=== PATIENT | female | born 1950 | race Hispanic/Latino ===

== ENCOUNTER → 2019-05-31 | Outpatient (CLI) | payer OTHER ==
[~2019-05-31] VITALS: Ht 147.3 cm; Wt 63.5 kg
[~2019-05-31] MED LIST: REGADENOSON 0.4 MG/5 ML PF SYG IVP SCH
== END | disposition home or self-care (01) ==
LOC: SHCH 08:55
PROVIDERS: ATTEND Internal Medicine Cardiovascular Disease
DX: R06.00 Dyspnea, unspecified (principal)
CPT/HCPCS: 78452; 93017; 96374; A9500 ×2; J2785

== ENCOUNTER 2021-03-11 03:15 | Emergency (ER) | payer OTHER ==
[~2021-03-11] VITALS: Ht 149.9 cm; Wt 63.0 kg
[2021-03-11 03:17] VITALS: BP 162/67
[2021-03-11] MEDS ORDERED: PRED20TA3 PO (03:54)
[2021-03-11] MEDS ORDERED: PREDNISONE 20 MG TABLET PO ONE (04:00)
[2021-03-11] MEDS ORDERED: FAMOTIDINE 20MG VIAL IV ONE (04:00)
[2021-03-11 04:18] VITALS: BP 143/66
== END 2021-03-11 04:31 | disposition home or self-care (01) ==
LOC: EDH 03:15
DX: T78.40XA Allergy, unspecified, initial encounter (principal); L29.9 Pruritus, unspecified; I10 Essential (primary) hypertension; E11.9 Type 2 diabetes mellitus without complications; Z79.899 Other long term (current) drug therapy; X58.XXXA Exposure to other specified factors, initial encounter
CPT/HCPCS: 96374; 99283; J3490

== ENCOUNTER 2021-10-12 14:35 | Observation (INO) | payer OTHER ==
[~2021-10-12] VITALS: Ht 152.4 cm; Wt 65.1 kg
[~2021-10-12 14:35] MED LIST changes: +PRED20TA3 PO; -REGADENOSON 0.4 MG/5 ML PF SYG IVP SCH
[2021-10-12] MEDS ORDERED: ASPIRIN 81MG CHEW TAB PO ONE (15:00)
[2021-10-12 15:29] LABS: BASOPHILS % (AUTO) 0.7 % (0.0-5.0); EOSINOPHILS % (AUTO) 0.3 % (0.0-8.0); HEMATOCRIT 37.5 % (36-48); LYMPHOCYTES % (AUTO) 27.5 % (21.0-51.0); MEAN CORPUSCULAR HEMOGLOBIN 32.4 pg (27.0-33.0); MEAN CORPUSCULAR HGB CONC 32.8 g/dL (32.0-36.0); MEAN CORPUSCULAR VOLUME 98.7 fL (79-99); MONOCYTES % (AUTO) 6.3 % (3.0-13.0); NEUTROPHILS % (AUTO) 64.9 % (40.0-77.0); PLATELET COUNT (AUTO) 287 K/uL (130-400); RED CELL DISTRIBUTION WIDTH 13.2 % (11.0-15.5)
[2021-10-12 15:41] LABS: CREATININE 1.8 mg/dL (0.5-1.5)
[2021-10-12 15:46] LABS: ALBUMIN 3.8 g/dL (3.5-5.0); BILIRUBIN,TOTAL 0.4 mg/dL (0.2-1.0); TOTAL PROTEIN, SERUM 8.2 g/dL (6.0-8.3)
[2021-10-12] MEDS ORDERED: NITROGLYCERIN 1GM OINT 1 INCH/1GM TD ONE ×2 (18:09→18:30)
[2021-10-12] MEDS ORDERED: NITROGLYCERIN 0.4 MG SL TAB SL PRN (18:30)
[2021-10-12] MEDS: 0.9%NACL 1000ML 1,000 ML IV SCH (18:46)
[2021-10-12] MEDS ORDERED: ONDANSETRON 4MG INJ IVP PRN (20:30)
[2021-10-12] MEDS ORDERED: ALEN10TA27 PO (21:04)
[2021-10-12] MEDS ORDERED: OMEP40CA21 PO (21:04)
[2021-10-12] MEDS ORDERED: LOSA100T58 PO (21:04)
[2021-10-12] MEDS ORDERED: METO50TA18 PO (21:04)
[2021-10-12] MEDS ORDERED: DIPH25TA20 PO (21:04)
[2021-10-12] MEDS ORDERED: DONE5TAB33 PO (21:04)
[2021-10-12] MEDS ORDERED: LORA10TA7 PO (21:04)
[2021-10-12] MEDS ORDERED: CHLO25TA3 PO (21:04)
[2021-10-12] MEDS ORDERED: FERS325 PO (21:04)
[2021-10-12] MEDS ORDERED: AMLO-257 PO (21:04)
[2021-10-12] MEDS: ENOXAPARIN SODIUM 30 MG/0.3 ML SQ SCH (23:09)
[2021-10-13 02:29] LABS: APPEARANCE,URINE Clear (CLEAR); BILIRUBIN,URINE Negative (NEGATIVE); COLOR,URINE Yellow (YELLOW); GLUCOSE, URINE (UA) Negative (NEGATIVE); KETONES,URINE Negative (NEGATIVE); LEUKOCYTE ESTERASE ,URINE Trace (NEGATIVE); NITRATE,URINE Negative (NEGATIVE); OCCULT BLOOD,URINE Negative (NEGATIVE); PH,URINE 5.5 (5.0-8.0); PROTEIN,URINE POS 2+ mg/dL (NEGATIVE); UROBILINOGEN,URINE 0.2 mg/dL (0.2-1.0)
[2021-10-13 02:33] LABS: CHLORIDE,URINE RANDOM 69 mmol/L (110-250); POTASSIUM,URINE RANDOM 10 mmol/L (25-125); SODIUM,URINE RANDOM 67 mmol/l (40-220)
[2021-10-13 02:48] LABS: BACTERIA,URINE None Seen /HPF (None Seen); RBC,URINE None Seen /HPF (0-1)
[2021-10-13] MEDS ORDERED: ACETAMINOPHEN 325 MG TAB PO PRN (05:30)
[2021-10-13] MEDS: 0.9%NACL 1000ML 1,000 ML IV SCH (07:50)
[2021-10-13 08:44] VITALS: BP 139/60
[2021-10-13] MEDS ORDERED: ENOXAPARIN SODIUM 30 MG/0.3 ML SQ SCH (09:00)
[2021-10-13] MEDS: ENOXAPARIN SODIUM 30 MG/0.3 ML SQ SCH (09:32)
[2021-10-13] MEDS ORDERED: [UNRECOGNIZED DRUG - OTHER] PO (09:40)
[2021-10-13] MEDS ORDERED: INSU100I35 SQ (09:40)
[2021-10-13] MEDS ORDERED: ACET650S28 PO (09:40)
[2021-10-13 12:00] VITALS: BP 159/68
[2021-10-13 16:00] VITALS: BP 146/77
[2021-10-13 16:44] LABS: HEMATOCRIT 31.4 % (36-48); MEAN CORPUSCULAR HEMOGLOBIN 32.1 pg (27.0-33.0); MEAN CORPUSCULAR HGB CONC 33.4 g/dL (32.0-36.0); RED BLOOD CELL COUNT(AUTO) 3.27 MIL/uL (4.00-5.50); WHITE BLOOD COUNT (AUTO) 4.8 K/uL (4.8-10.8)
[2021-10-13 16:58] LABS: CREATININE 1.5 mg/dL (0.5-1.5); POTASSIUM 3.7 mmol/L (3.5-5.1)
[2021-10-13 17:13] LABS: % IRON SATURATION 25.9 % (22-44)
[2021-10-13] MEDS: METOPROLOL TARTRATE 25 MG TAB PO SCH (20:05)
[2021-10-13] MEDS: AMLODIPINE 5 MG TAB PO SCH (20:05)
[2021-10-13] MEDS: INSULIN HUMULIN R 100 UNIT/ML 3ML SQ SCH (20:57)
[2021-10-13] MEDS ORDERED: HYDRALAZINE HCL 10 MG TABLET PO SCH (21:00)
[2021-10-13] MEDS ORDERED: METOPROLOL TARTRATE 50 MG TAB PO SCH (21:00)
[2021-10-13 21:11] VITALS: BP 152/72
[2021-10-14 00:26] VITALS: BP 137/87
[2021-10-14 03:31] VITALS: BP 128/47
[2021-10-14] MEDS: INSULIN HUMULIN R 100 UNIT/ML 3ML SQ SCH ×2 (06:02→12:20)
[2021-10-14] MEDS: 0.9%NACL 1000ML 1,000 ML IV SCH ×2 (06:24→10:30)
[2021-10-14 08:00] VITALS: BP 148/71
[2021-10-14] MEDS ORDERED: METO25TA6 PO (08:30)
[2021-10-14] MEDS ORDERED: LOSA50TA64 PO (08:30)
[2021-10-14] MEDS ORDERED: DULO60CA64 PO (08:30)
[2021-10-14] MEDS ORDERED: HYDR10 PO (08:30)
[2021-10-14] MEDS: AMLODIPINE 5 MG TAB PO SCH (08:41)
[2021-10-14] MEDS: METOPROLOL TARTRATE 25 MG TAB PO SCH (08:41)
[2021-10-14] MEDS: ENOXAPARIN SODIUM 30 MG/0.3 ML SQ SCH (08:41)
[2021-10-14] MEDS ORDERED: DULOXETINE HCL 30 MG CAP PO SCH ×2 (09:00→21:00)
[2021-10-14] MEDS ORDERED: LOSARTAN 50 MG TABLET PO SCH (09:00)
[2021-10-14] MEDS ORDERED: FAMOTIDINE 20MG TAB PO SCH (09:00)
[2021-10-14] MEDS ORDERED: DONEPEZIL HCL 5 MG TAB PO SCH (09:00)
[2021-10-14] MEDS ORDERED: LOSARTAN 100 MG TABLET PO SCH (09:00)
[2021-10-14] MEDS ORDERED: CHLORTHALIDONE 25 MG PO SCH (09:00)
[2021-10-14 12:00] VITALS: BP 144/68
[2021-10-14] MEDS ORDERED: HYDRALAZINE HCL 10 MG TABLET PO SCH (14:00)
[2021-10-14 16:00] VITALS: BP 148/73
== END 2021-10-14 17:30 | disposition home or self-care (01) ==
LOC: EDH 14:45 → INTOOBSV 18:08 → EDHIP 18:08 → 4BH 10-13 08:15
PROVIDERS: ADMIT Internal Medicine; ATTEND Internal Medicine
DX: R07.89 Other chest pain (principal); Z20.822 Contact with and (suspected) exposure to COVID-19; N17.9 Acute kidney failure, unspecified; R00.1 Bradycardia, unspecified; E11.9 Type 2 diabetes mellitus without complications; M79.7 Fibromyalgia; Z79.4 Long term (current) use of insulin; Z79.899 Other long term (current) drug therapy; Z98.890 Other specified postprocedural states
CPT/HCPCS: 36415 ×2; 71045; 76770; 78582; 80048; 80051; 80053; 81001; 82948 ×5; 83540; 83550; 84484 ×4; 85025; 85027; 85378 ×2; 87635; 93005; 93970; 96360; 96361 ×3; 96372 ×3; 99291; A9540; A9558; G0378 ×25; J1650 ×3; J1815 ×2; J7030

== ENCOUNTER → 2022-01-05 | Outpatient (CLI) | payer OTHER ==
[~2022-01-05] MED LIST changes: +ACET650S28 PO; +ALEN10TA27 PO; +AMLO-257 PO; +DIPH25TA20 PO; +DONE5TAB33 PO; +DULO60CA64 PO; +FERS325 PO; +HYDR10 PO; +INSU100I35 SQ; +LORA10TA7 PO; +LOSA50TA64 PO; +METO25TA6 PO; +OMEP40CA21 PO; -PRED20TA3 PO; +[UNRECOGNIZED DRUG - OTHER] PO
== END | disposition home or self-care (01) ==
LOC: SHCH 08:31
PROVIDERS: ATTEND Internal Medicine Cardiovascular Disease
DX: I35.1 Nonrheumatic aortic (valve) insufficiency (principal); I27.20 Pulmonary hypertension, unspecified; I11.9 Hypertensive heart disease without heart failure; E11.9 Type 2 diabetes mellitus without complications; R94.31 Abnormal electrocardiogram [ECG] [EKG]
CPT/HCPCS: 93306

== ENCOUNTER 2022-11-10 16:52 | Emergency (ER) | payer OTHER ==
[~2022-11-10] VITALS: Ht 149.9 cm; Wt 59.4 kg
[2022-11-10] MEDS ORDERED: LACTATED RINGERS 1000ML 1,000 ML IV ONE (17:30)
[2022-11-10 17:32] LABS: BASOPHILS % (AUTO) 0.6 % (0.0-5.0); EOSINOPHILS % (AUTO) 0.8 % (0.0-8.0); HEMATOCRIT 36.8 % (36-48); LYMPHOCYTES % (AUTO) 22.5 % (21.0-51.0); MEAN CORPUSCULAR HEMOGLOBIN 33.2 pg (27.0-33.0); MEAN CORPUSCULAR HGB CONC 35.9 g/dL (32.0-36.0); MEAN CORPUSCULAR VOLUME 92.5 fL (79-99); MONOCYTES % (AUTO) 5.4 % (3.0-13.0); NEUTROPHILS % (AUTO) 70.4 % (40.0-77.0); PLATELET COUNT (AUTO) 399 K/uL (130-400); RED BLOOD CELL COUNT(AUTO) 3.98 MIL/uL (4.00-5.50); RED CELL DISTRIBUTION WIDTH 13.2 % (11.0-15.5); WHITE BLOOD COUNT (AUTO) 8.7 K/uL (4.8-10.8)
[2022-11-10 17:36] LABS: APPEARANCE,URINE CLOUDY (CLEAR); BILIRUBIN,URINE NEGATIVE (NEGATIVE); COLOR,URINE YELLOW (YELLOW); GLUCOSE, URINE (UA) 300 mg/dL (NEGATIVE); KETONES,URINE NEGATIVE (NEGATIVE); LEUKOCYTE ESTERASE ,URINE NEGATIVE Leu/uL (NEGATIVE); NITRATE,URINE NEGATIVE (NEGATIVE); OCCULT BLOOD,URINE SMALL (NEGATIVE); PROTEIN,URINE 600 mg/dL (NEGATIVE); UROBILINOGEN,URINE 0.2 mg/dL (0.2-1.0)
[2022-11-10 17:43] LABS: BACTERIA,URINE RARE /HPF (None Seen); MUCUS,URINE RARE LPF (None Seen); OTHER CASTS, URINE 2 /LPF (None Seen); SQUAMOUS EPITHELIAL CELL,UR RARE /HPF (0-2); YEAST,URINE BUDDING FEW /HPF (None Seen)
[2022-11-10 17:49] LABS: POTASSIUM 3.2 mmol/L (3.5-5.1)
[2022-11-10 17:53] LABS: ALBUMIN 4.1 g/dL (3.5-5.0); TOTAL PROTEIN, SERUM 8.6 g/dL (6.0-8.3)
[2022-11-10] MEDS ORDERED: POTASSIUM CHLORIDE 10% ELIXIR 20 MEQ/15 ML UDCUP PO ONE (18:30)
[2022-11-10 19:57] VITALS: BP 119/65
== END 2022-11-10 19:57 | disposition home or self-care (01) ==
LOC: EDH 16:52
DX: E87.6 Hypokalemia (principal); N28.9 Disorder of kidney and ureter, unspecified; R10.12 Left upper quadrant pain; I10 Essential (primary) hypertension; E11.9 Type 2 diabetes mellitus without complications; Z90.49 Acquired absence of other specified parts of digestive tract; Z90.710 Acquired absence of both cervix and uterus; Z79.4 Long term (current) use of insulin; Z79.899 Other long term (current) drug therapy; Z88.0 Allergy status to penicillin; Z88.1 Allergy status to other antibiotic agents; Z88.5 Allergy status to narcotic agent; Z88.8 Allergy status to other drugs, medicaments and biological substances
CPT/HCPCS: 99284; 74176; 96360; 80053; 83690; 85025; 87088; 81001; 36415; J7120

== ENCOUNTER 2023-02-07 10:02 | Emergency (ER) | payer OTHER ==
[~2023-02-07] VITALS: Ht 149.9 cm; Wt 59.0 kg
[2023-02-07] MEDS ORDERED: 0.9%NACL 1000ML 1,000 ML IV ONE (10:30)
[2023-02-07] MEDS ORDERED: DICYCLOMINE HCL 10 MG/5 ML ML PO ONE (10:30)
[2023-02-07] MEDS ORDERED: MAG/ALUM/SIMETH 30 ML UDCUP PO ONE (10:30)
[2023-02-07] MEDS ORDERED: LIDOCAINE HCL 2% VISCOUS 15 ML UDCUP PO ONE (10:30)
[2023-02-07] MEDS ORDERED: ONDANSETRON 4MG INJ IVP ONE (10:30)
[2023-02-07 10:50] LABS: BASOPHILS % (AUTO) 0.5 % (0.0-5.0); EOSINOPHILS % (AUTO) 1.7 % (0.0-8.0); HEMATOCRIT 35.3 % (36-48); LYMPHOCYTES % (AUTO) 23.4 % (21.0-51.0); MEAN CORPUSCULAR HEMOGLOBIN 32.4 pg (27.0-33.0); MEAN CORPUSCULAR HGB CONC 33.7 g/dL (32.0-36.0); MEAN CORPUSCULAR VOLUME 96.2 fL (79-99); NEUTROPHILS % (AUTO) 68.2 % (40.0-77.0); PLATELET COUNT (AUTO) 266 K/uL (130-400); RED BLOOD CELL COUNT(AUTO) 3.67 MIL/uL (4.00-5.50); RED CELL DISTRIBUTION WIDTH 12.7 % (11.0-15.5); WHITE BLOOD COUNT (AUTO) 8.2 K/uL (4.8-10.8)
[2023-02-07 11:00] LABS: APPEARANCE,URINE CLEAR (CLEAR); BILIRUBIN,URINE NEGATIVE (NEGATIVE); COLOR,URINE LIGHT-YELLOW (YELLOW); GLUCOSE, URINE (UA) NEGATIVE (NEGATIVE); KETONES,URINE NEGATIVE (NEGATIVE); LEUKOCYTE ESTERASE ,URINE NEGATIVE Leu/uL (NEGATIVE); NITRATE,URINE NEGATIVE (NEGATIVE); OCCULT BLOOD,URINE NEGATIVE (NEGATIVE); PH,URINE 5.5 (5.0-8.0); PROTEIN,URINE 100 mg/dL (NEGATIVE); UROBILINOGEN,URINE 0.2 mg/dL (0.2-1.0)
[2023-02-07 11:01] LABS: CREATININE 1.7 mg/dL (0.5-1.5); POTASSIUM 3.7 mmol/L (3.5-5.1)
[2023-02-07 11:05] LABS: ALBUMIN 4.1 g/dL (3.5-5.0); TOTAL PROTEIN, SERUM 8.3 g/dL (6.0-8.3)
[2023-02-07 12:05] LABS: BACTERIA,URINE RARE /HPF (None Seen)
[2023-02-07 13:04] VITALS: BP 144/60
[2023-02-07] MEDS ORDERED: CIPR750T17 PO (13:23)
[2023-02-07] MEDS ORDERED: ONDA4TAB10 PO (13:23)
[2023-02-07] MEDS ORDERED: ESOM40CA PO (13:23)
[2023-02-07] MEDS ORDERED: LOPE2TAB26 PO (13:23)
== END 2023-02-07 14:09 | disposition home or self-care (01) ==
LOC: EDH 10:02
DX: K52.9 Noninfective gastroenteritis and colitis, unspecified (principal); R74.8 Abnormal levels of other serum enzymes; E11.9 Type 2 diabetes mellitus without complications; I10 Essential (primary) hypertension; M79.7 Fibromyalgia; Z79.4 Long term (current) use of insulin; Z79.899 Other long term (current) drug therapy; Z88.0 Allergy status to penicillin; Z88.1 Allergy status to other antibiotic agents; Z88.5 Allergy status to narcotic agent; Z90.49 Acquired absence of other specified parts of digestive tract
CPT/HCPCS: 99285; 74176; 96374; 96361; 84484; 80053; 83690; 85025; 81001; 36415; 93005; J7030; J2405

== ENCOUNTER 2023-03-06 20:31 | Observation (INO) | payer OTHER ==
[~2023-03-06 20:31] MED LIST changes: +CIPR750T17 PO; +ESOM40CA PO; +LOPE2TAB26 PO; +ONDA4TAB10 PO
[2023-03-06 21:10] LABS: BASOPHILS % (AUTO) 0.9 % (0.0-5.0); EOSINOPHILS % (AUTO) 2.4 % (0.0-8.0); HEMATOCRIT 30.6 % (36-48); MEAN CORPUSCULAR HEMOGLOBIN 32.6 pg (27.0-33.0); MEAN CORPUSCULAR HGB CONC 33.3 g/dL (32.0-36.0); MEAN CORPUSCULAR VOLUME 97.8 fL (79-99); MONOCYTES % (AUTO) 8.5 % (3.0-13.0); NEUTROPHILS % (AUTO) 56.8 % (40.0-77.0); PLATELET COUNT (AUTO) 215 K/uL (130-400); RED BLOOD CELL COUNT(AUTO) 3.13 MIL/uL (4.00-5.50); RED CELL DISTRIBUTION WIDTH 13.3 % (11.0-15.5); WHITE BLOOD COUNT (AUTO) 4.6 K/uL (4.8-10.8)
[2023-03-06 21:33] LABS: ALBUMIN 3.6 g/dL (3.5-5.0); TOTAL PROTEIN, SERUM 7.2 g/dL (6.0-8.3)
[2023-03-06] MEDS ORDERED: ACETAMINOPHEN 500 MG TABLET PO ONE (22:00)
[2023-03-06] MEDS ORDERED: FAMOTIDINE 20MG VIAL IV ONE (22:00)
[2023-03-06] MEDS ORDERED: METOCLOPRAMIDE 10 MG/2 ML VIAL IVP ONE (22:00)
[2023-03-07 00:16] LABS: CHOLESTEROL 245 mg/dL (<200); HDL CHOLESTEROL 53 mg/dL (35-85); LDL DIRECT 137 mg/dL (0-99); TRIGLYCERIDES 218 mg/dL (30-200)
[2023-03-07] MEDS ORDERED: 0.9%NACL 1000ML 1,000 ML IV SCH (00:30)
[2023-03-07 00:48] LABS: APPEARANCE,URINE CLEAR (CLEAR); BILIRUBIN,URINE NEGATIVE (NEGATIVE); COLOR,URINE LIGHT-YELLOW (YELLOW); GLUCOSE, URINE (UA) >=1000 mg/dL (NEGATIVE); KETONES,URINE NEGATIVE (NEGATIVE); LEUKOCYTE ESTERASE ,URINE NEGATIVE Leu/uL (NEGATIVE); NITRATE,URINE NEGATIVE (NEGATIVE); OCCULT BLOOD,URINE NEGATIVE (NEGATIVE); PH,URINE 5.5 (5.0-8.0); PROTEIN,URINE 100 mg/dL (NEGATIVE); UROBILINOGEN,URINE 0.2 mg/dL (0.2-1.0)
[2023-03-07 00:52] LABS: BACTERIA,URINE RARE /HPF (None Seen); RBC,URINE 0-1 /HPF (0-1); SQUAMOUS EPITHELIAL CELL,UR RARE /HPF (0-2)
[2023-03-07] MEDS ORDERED: HYDROCODONE/ACETAMINOPHEN 5/325 MG TAB PO PRN (02:30)
[2023-03-07] MEDS ORDERED: ONDANSETRON 4MG INJ IV PRN (02:30)
[2023-03-07] MEDS ORDERED: HYDROMORPHONE 1 MG INJ IV PRN (02:30)
[2023-03-07] MEDS ORDERED: ACETAMINOPHEN 325 MG TAB PO PRN (02:30)
[2023-03-07] MEDS: 0.9%NACL 1000ML 1,000 ML IV SCH ×2 (03:14→14:28)
[2023-03-07] MEDS: HEPARIN 5,000 UNIT VIAL SQ SCH ×2 (03:41→15:07)
[2023-03-07 07:29] LABS: BASOPHILS % (AUTO) 0.7 % (0.0-5.0); EOSINOPHILS % (AUTO) 2.6 % (0.0-8.0); HEMATOCRIT 29.4 % (36-48); LYMPHOCYTES % (AUTO) 42.6 % (21.0-51.0); MEAN CORPUSCULAR HEMOGLOBIN 32.4 pg (27.0-33.0); MEAN CORPUSCULAR HGB CONC 33.7 g/dL (32.0-36.0); MEAN CORPUSCULAR VOLUME 96.1 fL (79-99); MONOCYTES % (AUTO) 9.1 % (3.0-13.0); NEUTROPHILS % (AUTO) 44.8 % (40.0-77.0); PLATELET COUNT (AUTO) 222 K/uL (130-400); RED BLOOD CELL COUNT(AUTO) 3.06 MIL/uL (4.00-5.50); RED CELL DISTRIBUTION WIDTH 13.4 % (11.0-15.5); WHITE BLOOD COUNT (AUTO) 4.3 K/uL (4.8-10.8)
[2023-03-07 07:41] LABS: HEMOGLOBIN A1C 8.4 % (4.0-6.0)
[2023-03-07 07:42] LABS: MAGNESIUM 1.9 mg/dL (1.80-2.40); PHOSPHORUS 4.6 mg/dL (2.5-4.9); POTASSIUM 3.9 mmol/L (3.5-5.1)
[2023-03-07] MEDS: PANTOPRAZOLE 40 MG TAB DR PO SCH (08:12)
[2023-03-07 10:26] LABS: CRP QUANTITATIVE < 2.00 mg/L (0.00-9.0); LIPASE 521 U/L (114-286)
[2023-03-07 11:03] LABS: INR 0.93 (0.85-1.15); PROTHROMBIN TIME 10.7 SEC (9.6-11.6)
[2023-03-07] MEDS: INSULIN HUMULIN R 100 UNIT/ML 3ML SQ SCH ×3 (11:30→21:00)
[2023-03-07 16:25] VITALS: BP 141/65; PULSE 49; RESP 16
[2023-03-07] MEDS: ACETAMINOPHEN 325 MG TAB PO PRN (16:42)
[2023-03-07 19:55] VITALS: BP 161/65; PULSE 62; RESP 18
[2023-03-07 20:00] VITALS: O2SAT 100
[2023-03-07] MEDS ORDERED: HYDRALAZINE 20MG/ML VIAL IV PRN (20:00)
[2023-03-07] MEDS ORDERED: LOSARTAN 50 MG TABLET PO SCH (21:00)
[2023-03-07 23:57] VITALS: BP 145/70; PULSE 64; RESP 18
[2023-03-08] VITALS (8 sets, daily range): BP systolic 108–153; BP diastolic 63–77; PULSE 56–68; RESP 16–18; O2SAT 99–100
[2023-03-08] MEDS: HEPARIN 5,000 UNIT VIAL SQ SCH ×2 (03:40→16:13)
[2023-03-08 05:39] LABS: BASOPHILS % (AUTO) 0.7 % (0.0-5.0); EOSINOPHILS % (AUTO) 3.7 % (0.0-8.0); HEMATOCRIT 29.2 % (36-48); LYMPHOCYTES % (AUTO) 41.6 % (21.0-51.0); MEAN CORPUSCULAR HEMOGLOBIN 32.6 pg (27.0-33.0); MEAN CORPUSCULAR HGB CONC 33.2 g/dL (32.0-36.0); MONOCYTES % (AUTO) 8.2 % (3.0-13.0); NEUTROPHILS % (AUTO) 45.6 % (40.0-77.0); PLATELET COUNT (AUTO) 217 K/uL (130-400); RED BLOOD CELL COUNT(AUTO) 2.98 MIL/uL (4.00-5.50); RED CELL DISTRIBUTION WIDTH 13.4 % (11.0-15.5)
[2023-03-08 05:57] LABS: ALANINE AMINOTRANSFERASE 21 U/L (12-78); ALBUMIN 3.4 g/dL (3.5-5.0); ASPARTATE AMINOTRANSFERASE 24 U/L (10-37); BILIRUBIN,DIRECT 0.1 mg/dL (0.0-0.3); CARBON DIOXIDE 23 mmol/L (21-32); CHLORIDE 108 mmol/L (101-111); CREATININE 1.9 mg/dL (0.5-1.5); GLOMERULAR FILTR. RATE CALC 28 mL/min (>90); GLUCOSE,RANDOM 101 mg/dL (70-105); LIPASE 198 U/L (114-286); POTASSIUM 3.7 mmol/L (3.5-5.1); SODIUM SERUM 139 mmol/L (136-145); TOTAL PROTEIN, SERUM 6.7 g/dL (6.0-8.3); UREA NITROGEN, BLOOD 27 mg/dL (7-18)
[2023-03-08 05:58] LABS: CRP QUANTITATIVE < 2.00 mg/L (0.00-9.0)
[2023-03-08] MEDS: INSULIN HUMULIN R 100 UNIT/ML 3ML SQ SCH ×4 (06:36→21:00)
[2023-03-08] MEDS: PANTOPRAZOLE 40 MG TAB DR PO SCH (09:02)
[2023-03-08] MEDS: 0.9%NACL 1000ML 1,000 ML IV SCH ×2 (10:28→22:51)
[2023-03-08] MEDS ORDERED: AMLODIPINE 5 MG TAB PO SCH (21:00)
[2023-03-08] MEDS: METOCLOPRAMIDE 5 MG TABLET PO SCH (21:25)
[2023-03-08] MEDS: ACETAMINOPHEN 325 MG TAB PO PRN (23:17)
[2023-03-09] MEDS: HEPARIN 5,000 UNIT VIAL SQ SCH ×2 (03:36→16:46)
[2023-03-09 03:42] VITALS: BP 144/60; PULSE 75; RESP 16
[2023-03-09 04:43] LABS: BASOPHILS % (AUTO) 0.7 % (0.0-5.0); EOSINOPHILS % (AUTO) 2.5 % (0.0-8.0); HEMATOCRIT 26.7 % (36-48); LYMPHOCYTES % (AUTO) 50.3 % (21.0-51.0); MEAN CORPUSCULAR HEMOGLOBIN 32.6 pg (27.0-33.0); MEAN CORPUSCULAR HGB CONC 33.7 g/dL (32.0-36.0); MEAN CORPUSCULAR VOLUME 96.7 fL (79-99); MONOCYTES % (AUTO) 8.2 % (3.0-13.0); NEUTROPHILS % (AUTO) 38.1 % (40.0-77.0); PLATELET COUNT (AUTO) 205 K/uL (130-400); RED BLOOD CELL COUNT(AUTO) 2.76 MIL/uL (4.00-5.50); RED CELL DISTRIBUTION WIDTH 13.3 % (11.0-15.5); WHITE BLOOD COUNT (AUTO) 4.4 K/uL (4.8-10.8)
[2023-03-09 04:54] LABS: CREATININE 1.9 mg/dL (0.5-1.5); POTASSIUM 3.4 mmol/L (3.5-5.1)
[2023-03-09] MEDS: METOCLOPRAMIDE 5 MG TABLET PO SCH ×3 (06:25→16:39)
[2023-03-09] MEDS: INSULIN HUMULIN R 100 UNIT/ML 3ML SQ SCH ×3 (06:43→16:54)
[2023-03-09 08:00] VITALS: BP 132/60; PULSE 57; RESP 17; O2SAT 100
[2023-03-09] MEDS: PANTOPRAZOLE 40 MG TAB DR PO SCH (10:01)
[2023-03-09 11:37] VITALS: BP 149/72; PULSE 64; RESP 19
[2023-03-09] MEDS ORDERED: METO5TAB2 PO (11:43)
[2023-03-09] MEDS ORDERED: AMLO5TAB4 PO (11:43)
[2023-03-09 16:00] VITALS: BP 149/67; PULSE 60; RESP 19
== END 2023-03-09 18:40 | disposition home or self-care (01) ==
LOC: EDH 20:31 → EDHIP 03-07 02:11 → INTOOBSV 03-07 02:11 → 3DH 03-07 16:25
PROVIDERS: ADMIT Internal Medicine; ATTEND Internal Medicine
DX: K85.90 Acute pancreatitis without necrosis or infection, unspecified (principal); Z20.822 Contact with and (suspected) exposure to COVID-19; E11.65 Type 2 diabetes mellitus with hyperglycemia; I12.0 Hypertensive chronic kidney disease with stage 5 chronic kidney disease or end stage renal disease; E11.22 Type 2 diabetes mellitus with diabetic chronic kidney disease; N18.32 Chronic kidney disease, stage 3b; E78.2 Mixed hyperlipidemia; M79.7 Fibromyalgia; K76.89 Other specified diseases of liver; Z88.0 Allergy status to penicillin; Z79.899 Other long term (current) drug therapy; Z90.710 Acquired absence of both cervix and uterus; Z51.5 Encounter for palliative care; Z79.4 Long term (current) use of insulin
CPT/HCPCS: 96374; 96375; 99285; 84484 ×2; 80061; 80053; 83690 ×3; 85025 ×4; 74018; 71045; 93005; 96372 ×3; 96361; 83036; 83735; 84100; 80048 ×3; 85610; 85730; 87804 ×2; 82948 ×10; 86140 ×2; 81001; 36415 ×4; 87635; 74176; 74181; 80076; J3490; J2765; G0378 ×30; J1644 ×6; S8037

== ENCOUNTER 2023-06-05 12:28 | Emergency (ER) | payer OTHER ==
[~2023-06-05] VITALS: Ht 149.9 cm; Wt 62.6 kg
[~2023-06-05 12:28] MED LIST changes: -ACET650S28 PO; -ALEN10TA27 PO; -AMLO-257 PO; +AMLO5TAB4 PO; -CIPR750T17 PO; -DIPH25TA20 PO; -DULO60CA64 PO; -HYDR10 PO; -LOPE2TAB26 PO; -LOSA50TA64 PO; +METO5TAB2 PO; -OMEP40CA21 PO; -[UNRECOGNIZED DRUG - OTHER] PO
[2023-06-05 13:15] LABS: BASOPHILS # (AUTO) 0.03 K/uL (0.00-0.20); BASOPHILS % (AUTO) 0.4 % (0.0-5.0); EOSINOPHILS # (AUTO) 0.21 K/uL (0.00-0.70); EOSINOPHILS % (AUTO) 2.6 % (0.0-8.0); HEMATOCRIT 33.9 % (36-48); IMMATURE GRANULOCYTE ABSOLUTE 0.02 K/uL (0-1); MEAN CORPUSCULAR HGB CONC 34.5 g/dL (32.0-36.0); MEAN CORPUSCULAR VOLUME 98.5 fL (79-99); MONOCYTES # (AUTO) 0.6 K/uL (0.1-1.0); MONOCYTES % (AUTO) 7.6 % (3.0-13.0); NEUTROPHILS # (AUTO) 5.3 K/uL (1.8-7.7); NEUTROPHILS % (AUTO) 65.2 % (40.0-77.0); PLATELET COUNT (AUTO) 297 K/uL (130-400); RED BLOOD CELL COUNT(AUTO) 3.44 MIL/uL (4.00-5.50); RED CELL DISTRIBUTION WIDTH 13.3 % (11.0-15.5); WHITE BLOOD COUNT (AUTO) 8.2 K/uL (4.8-10.8)
[2023-06-05 13:23] LABS: CREATININE 1.9 mg/dL (0.5-1.5); POTASSIUM 3.5 mmol/L (3.5-5.1)
[2023-06-05 13:27] LABS: ALBUMIN 4.1 g/dL (3.5-5.0); BILIRUBIN,TOTAL 0.4 mg/dL (0.2-1.0); TOTAL PROTEIN, SERUM 8.2 g/dL (6.0-8.3)
[2023-06-05 14:20] LABS: APPEARANCE,URINE CLEAR (CLEAR); BILIRUBIN,URINE NEGATIVE (NEGATIVE); COLOR,URINE LIGHT-YELLOW (YELLOW); GLUCOSE, URINE (UA) NEGATIVE (NEGATIVE); KETONES,URINE NEGATIVE (NEGATIVE); LEUKOCYTE ESTERASE ,URINE 75 Leu/uL (NEGATIVE); NITRATE,URINE NEGATIVE (NEGATIVE); OCCULT BLOOD,URINE NEGATIVE (NEGATIVE); PH,URINE 5.5 (5.0-8.0); PROTEIN,URINE 300 mg/dL (NEGATIVE); UROBILINOGEN,URINE 0.2 mg/dL (0.2-1.0)
[2023-06-05 14:23] LABS: ADD UA MICROSCOPIC YES
[2023-06-05 14:46] LABS: MUCUS,URINE RARE LPF (None Seen); OTHER CASTS, URINE 3 /LPF (None Seen); RBC,URINE 0-1 /HPF (0-1); SQUAMOUS EPITHELIAL CELL,UR RARE /HPF (0-2)
[2023-06-05] MEDS ORDERED: SULF1TAB41 PO (18:38)
[2023-06-05] MEDS ORDERED: FAMO-136 PO (18:54)
[2023-06-05] MEDS ORDERED: PANTOPRAZOLE 40 MG/VIAL IVP ONE (19:00)
[2023-06-05] MEDS ORDERED: FAMOTIDINE 20MG VIAL IV ONE (19:00)
[2023-06-05 19:17] VITALS: BP 149/76; PULSE 69; RESP 18; O2SAT 97
== END 2023-06-05 19:21 | disposition home or self-care (01) ==
LOC: EDH 12:28
DX: N39.0 Urinary tract infection, site not specified (principal); K85.90 Acute pancreatitis without necrosis or infection, unspecified; E11.9 Type 2 diabetes mellitus without complications; I10 Essential (primary) hypertension; M79.7 Fibromyalgia; Z79.4 Long term (current) use of insulin; Z79.899 Other long term (current) drug therapy; Z88.0 Allergy status to penicillin; Z88.1 Allergy status to other antibiotic agents; Z88.5 Allergy status to narcotic agent; Z90.49 Acquired absence of other specified parts of digestive tract; Z90.710 Acquired absence of both cervix and uterus
CPT/HCPCS: 99285; 96374; 71045; 96375; 80053; 83690; 85025; 87088; 81001; 36415; 93005; J3490; C9113

== ENCOUNTER 2025-08-21 11:42 | Emergency (ER) | payer OTHER ==
[~2025-08-21] VITALS: Ht 149.9 cm; Wt 61.2 kg
[~2025-08-21 11:42] MED LIST changes: +AMLO-257 PO; -AMLO5TAB4 PO; +ASCO500T10 PO; +ATOR20TA65 PO; +CALC0.253 PO; +CARV6.25 PO; +CEPH500B PO; -DONE5TAB33 PO; +DULO30CA52 PO; +EMPA25TA PO; -ESOM40CA PO; -INSU100I35 SQ; -METO25TA6 PO; -METO5TAB2 PO; -ONDA4TAB10 PO; +PANT40TA54 PO; +PIOG30TA70 PO; +RAMI10CA76 PO; +SODI650T PO
[2025-08-21 12:28] LABS: IMMATURE GRANULOCYTE ABSOLUTE 0.01 K/uL (0-1); NUCLEATED RED BLOOD CELLS 0.0 % (0.0-0.19); PLATELET COUNT (AUTO) 214 K/uL (130-400); RED BLOOD CELL COUNT(AUTO) 2.79 MIL/uL (4.00-5.50); RED CELL DISTRIBUTION WIDTH 14.4 % (11.0-15.5); WHITE BLOOD COUNT (AUTO) 4.9 K/uL (4.8-10.8)
[2025-08-21 12:32] LABS: APPEARANCE,URINE CLEAR (CLEAR); GLUCOSE, URINE (UA) TRACE mg/dL (NEGATIVE); LEUKOCYTE ESTERASE ,URINE NEGATIVE Leu/uL (NEGATIVE); NITRATE,URINE NEGATIVE (NEGATIVE); OCCULT BLOOD,URINE NEGATIVE (NEGATIVE)
[2025-08-21 12:34] LABS: ADD UA MICROSCOPIC YES
[2025-08-21 12:39] LABS: CREATININE 3.6 mg/dL (0.5-1.0); GLOMERULAR FILTR. RATE CALC 13.0 mL/min (>90); GLUCOSE,RANDOM 93.0 mg/dL (70-105); SODIUM SERUM 139.0 mmol/L (136-145); UREA NITROGEN, BLOOD 47.0 mg/dL (7-18)
[2025-08-21 12:43] LABS: OTHER CASTS, URINE 1 /LPF (None Seen); SQUAMOUS EPITHELIAL CELL,UR RARE /HPF (0-2)
--- NOTE | 2025-08-21 13:52 | HMCIMG ---
EXAM: CT Abdomen and Pelvis Without IV contrast CLINICAL HISTORY: Right flank pain TECHNIQUE: Axial computed tomography images of the abdomen and pelvis without intravenous contrast. CONTRAST: No IV contrast. COMPARISON: None provided. FINDINGS: LUNG BASES: The lung bases appear clear. No pleural effusions are seen. LIVER: Fluid attenuating left hepatic cyst. GALLBLADDER AND BILE DUCTS: The gallbladder appears within normal limits. No radioopaque gallstones are seen. No biliary ductal dilatation is evident. PANCREAS: Unremarkable. SPLEEN: Unremarkable. ADRENAL GLANDS: 2 cm right adrenal adenoma. KIDNEYS, URETERS, AND BLADDER: Minimal fat stranding of the urinary bladder. Recommend correlation for cystitis. STOMACH AND BOWEL: Diverticulosis without diverticulitis. APPENDIX: No evidence of acute appendicitis on CT examination. PERITONEUM: No free fluid. No free air. LYMPH NODES: No lymphadenopathy is evident. REPRODUCTIVE: Unremarkable as visualized. VASCULATURE: No evidence of abdominal aortic aneurysm. BONES: Multilevel degenerative disc disease with disc height loss and vacuum disc phenomenon. Secondary to degenerative disc disease there is mild dextroscoliotic curvature of the lumbar spine. MISCELLANEOUS: 6 mm stone mid right ureter. IMPRESSION: 1. 6 mm stone in mid right ureter, without significant hydronephrosis or hydroureter. 2. Minimal fat stranding of the urinary bladder, recommend correlation for cystitis. /Jerome
--- NOTE | 2025-08-21 16:23 | ERN ---
ED Note History of Present Illness Stated Complaint: LOWER BACK PAIN Chief Complaint: Low Back Pain/Injury Time Seen by MD: 11:43 Dictation: 74-year-old female presenting to the emergency department with two days of right flank pain which has been constant no chest pain shortness of breath or fever. Patient denies any pain with urination. Allergies: Coded Allergies: Penicillins (Unverified Allergy, Mild, HIVES, 10/13/21) codeine (Unverified Allergy, Mild, NAUSEA/VOMITING, 10/13/21) enalaprilat (Unverified Allergy, Mild, DIZZINESS, 10/13/21) azithromycin (Unverified Allergy, Unknown, 10/13/21) cyclobenzaprine (Unverified Allergy, Unknown, 10/13/21) felodipine (Unverified Allergy, Unknown, 10/13/21) trazodone (Unverified Allergy, Unknown, 10/13/21) Home Meds Active Scripts Cephalexin Monohydrate (Keflex) 500 Mg Cap, 1 CAP PO BID for 7 Days, #14 CAP 0 Refills Prov:TERRY LAGUNA MD 11/15/24 Reported Medications Ramipril (Ramipril) 10 Mg Capsule, 1 CAP PO DAILY for 30 Days, #30 CAP 0 Refills 11/12/24 Calcitriol (Calcitriol) 0.25 Mcg Capsule, 1 CAP PO QODAY for 30 Days, #30 CAP 0 Refills 11/12/24 Pioglitazone HCl (Pioglitazone HCl) 30 Mg Tablet, 1 TAB PO DAILY for 30 Days, #30 TAB 0 Refills 11/12/24 Duloxetine HCl (Duloxetine HCl) 30 Mg Capsule.dr, 1 CAP PO DAILY for 30 Days, #30 CAP 0 Refills 11/12/24 Ascorbic Acid (Ascorbic Acid) 500 Mg Tablet, 1 TAB PO DAILY for 30 Days, #30 TAB 0 Refills 11/12/24 Atorvastatin Calcium (Atorvastatin Calcium) 20 Mg Tablet, 0.5 TAB PO HS for 30 Days, #30 TAB 0 Refills 11/12/24 Ferrous Sulfate (Ferrous Sulfate) 325 Mg (65 Mg Iron) Ectab, 325 MG PO AM, TAB.EC 03/22/24 Empagliflozin (Jardiance) 25 Mg Tablet, 25 MG PO AM, TAB 03/22/24 Amlodipine Besylate (Amlodipine Besylate) 5 Mg Tablet, 5 MG PO BID, TAB 03/22/24 Pantoprazole Sodium (Pantoprazole Sodium) 40 Mg Tablet.dr, 40 MG PO BID, TAB 03/22/24 Carvedilol (Carvedilol) 6.25 Mg Tablet, 6.25 MG PO BID, TAB 03/22/24 Sodium Bicarbonate (Sodium Bicarbonate) 650 Mg Tablet, 650 MG PO BID, TAB 03/22/24 Loratadine (Loratadine) 10 Mg Tablet, 10 MG PO DAILY for ANTIHISTAMINES, TAB 02/06/24 Past Medical History Past Medical History: Diabetes-Type II, Hypertension Surgical History: Appendectomy, Hysterectomy, Cholecystectomy Surgical History Other: APPENDECTOMY Social History: Negative History: Not Applicable Review of System Dictation Constitutional: Negative for fever,chills, and weight loss Eyes: Negative for injury, pain,redness, and discharge ENT: Negative for injury,pain or swelling Cardiovascular: Negative for chest pain, palpitations, and edema Respiratory: Negative for shortness of breath, cough, and wheezing, Abdomen/GI: Negative for abdominal pain, nausea, vomiting, diarrhea, and constipation Back: Per HPI : Per HPI MS/Extremity: Negative for injury and deformity Skin: Negative for rash, and discoloration Neuro: Negative for headache, weakness, numbness, tingling, and seizure Psych: Negative for suicide ideation, homicidal ideation, and hallucinations Initial Vital Sign VS Vital Signs Date Time Temp Pulse Resp B/P (MAP) Pulse Ox O2 Delivery O2 Flow Rate FiO2 08/21/25 11:43 97.3 63 20 179/90 100 Room Air 08/21/25 12:00 0 21 Physical Exam Dictation General: awake, alert, NAD Head/Face: Normocephalic, atraumatic Eyes: PERRL, EOMI, vision at baseline ENT: oral cavity clear, TMs clear, no signs of infection Neck: Trachea midline, supple, no nuchal rigidity Cardiovascular: RRR, normal S1/S2, No MRGs, no JVD Respiratory: CTAB, no respiratory distress, No rales or wheezes Abdomen: Soft, non-tender, non-distended, normal bowel sounds, no guarding or rebound. Skin: Warm, dry, normal turgor, no rash MS/Extremity: Pulses equal, no cyanosis, neurovascular intact, FROM Neuro: COAx4, GCS 15, strength 5/5, CN 2-12 intact, normal cerebellar exam, normal gait, Psych: Normal behavior, mood, and affect normal Results (Laboratory/Radiology) Laboratory/Radiology Laboratory Tests Test 08/21/25 12:19 08/21/25 12:21 White Blood Count 4.9 K/uL (4.8-10.8) Red Blood Count 2.79 MIL/uL (4.00-5.50) L Hemoglobin 9.2 g/dL (12.0-16.0) L Hematocrit 28.6 % (36-48) L Mean Corpuscular Volume 102.5 fL (79-99) H Mean Corpuscular Hemoglobin 33.0 pg (27.0-33.0) Mean Corpuscular Hemoglobin Concent 32.2 g/dL (32.0-36.0) Red Cell Distribution Width 14.4 % (11.0-15.5) Platelet Count 214 K/uL (130-400) Mean Platelet Volume 10.3 fL (7.5-10.5) Immature Granulocyte % (Auto) 0.2 % (0-1) Neutrophils (%) (Auto) 60.9 % (40.0-77.0) Lymphocytes (%) (Auto) 26.1 % (21.0-51.0) Monocytes (%) (Auto) 10.1 % (3.0-13.0) Eosinophils (%) (Auto) 2.1 % (0.0-8.0) Basophils (%) (Auto) 0.6 % (0.0-5.0) Neutrophils # (Auto) 3.0 K/uL (1.8-7.7) Lymphocytes # (Auto) 1.3 K/uL (1.0-4.8) Monocytes # (Auto) 0.5 K/uL (0.1-1.0) Eosinophils # (Auto) 0.10 K/uL (0.00-0.70) Basophils # (Auto) 0.03 K/uL (0.00-0.20) Absolute Immature Granulocyte (auto 0.01 K/uL (0-1) Nucleated Red Blood Cells 0.0 % (0.0-0.19) Sodium Level 139 mmol/L (136-145) Potassium Level 3.7 mmol/L (3.5-5.1) Chloride Level 107 mmol/L (101-111) Carbon Dioxide Level 23 mmol/L (21-32) Blood Urea Nitrogen 47 mg/dL (7-18) H Creatinine 3.6 mg/dL (0.5-1.0) H Glomerular Filtration Rate Calc 13 mL/min (>90) Random Glucose 93 mg/dL (70-105) Total Calcium 8.8 mg/dL (8.5-10.1) Troponin I High Sensitivity 32 ng/L (4-50) Urine Color COLORLESS (YELLOW) Urine Appearance CLEAR (CLEAR) Urine pH 6.0 (5.0-8.0) Urine Specific [place] 1.005 (1.001-1.031) Urine Protein 100 mg/dL (NEGATIVE) H Urine Glucose (UA) TRACE mg/dL (NEGATIVE) H Urine Ketones NEGATIVE mg/dL (NEGATIVE) Urine Occult Blood NEGATIVE (NEGATIVE) Urine Nitrate NEGATIVE (NEGATIVE) Urine Bilirubin NEGATIVE mg/dL (NEGATIVE) Urine Urobilinogen 0.2 mg/dL (0.2-1.0) Urine Leukocyte Esterase NEGATIVE Cameron/uL Urine RBC None /HPF (0-1) Urine WBC 0-1 /HPF (0-1) Urine Squamous Epithelial Cells RARE /HPF (0-2) Urine Bacteria None /HPF (None Seen) Urine Other Casts 1 /LPF (None Seen) Labs Reviewed?: Yes ED Course ED Course Orders Procedure Category Date Status Time 12 Lead Ekg Tracing- EKG 08/21/25 Transmitted Technical 12:09 Basic Metabolic Panel LAB 08/21/25 Complete 12:09 Cbc With Differential LAB 08/21/25 Complete 12:09 Urinalysis Profile LAB 08/21/25 Complete 12:09 Troponin I High LAB 08/21/25 Complete Sensitivity 12:09 Ct Abd/Pel Wo Con CT 08/21/25 Resulted Renal/Appy 12:09 Diazepam 5 Mg/Ml 2 Ml PHA 08/21/25 Complete Syg (Valium 5 Mg/M 12:09 Hydralazine 20mg Inj PHA 08/21/25 Complete (Apresoline 20mg In 13:53 Current Medications Medications (Trade) Dose Ordered Sig/Eber Route PRN Reason Start Time Stop Time Status Last Admin Dose Admin Diazepam (VALium 5 MG/ML 2 ML SYG) 5 mg ONCE IV 08/21/25 12:09 08/21/25 16:00 DC 08/21/25 13:15 Hydralazine HCl (APRESOLine 20MG INJ) 10 mg ONCE STAT IV 08/21/25 13:53 08/21/25 13:56 DC 08/21/25 14:19 Vital Signs Date Time Temp Pulse Resp B/P (MAP) Pulse Ox O2 Delivery O2 Flow Rate FiO2 08/21/25 15:38 97.3 71 16 166/66 99 Room Air* 0 21 08/21/25 14:30 97.3 63 17 191/68 100 Room Air* 0 21 08/21/25 14:19 58 206/74 08/21/25 13:46 97.3 57 18 211/70 100 Room Air* 0 21 08/21/25 13:21 97.3 60 18 216/69 99 Room Air* 0 21 08/21/25 12:00 97.3 63 20 179/90 100 Room Air* 0 21 08/21/25 11:43 97.3 63 20 179/90 100 Room Air Medical Decision Making MDM MDM: Differential diagnosis: Rationale: Tests considered and ordered secondary to shared decision making include: labs, ECG and radiology Previous outside records reviewed: Old ER visits. Risk of complication and/or morbidity or mortality of patient management: None Medications-Per medication reconciliation Need for hospitalization: Patient does meet criteria for hospitalization. Need for emergency major/minor surgery: No There are no social concerns with this patient. Prescription drug management Prescriptions will include symptomatic care Patient's prior external medical records from other ER visits were reviewed by me as indicated. Prior testing and results from previous visits were reviewed. Prior tests were taken into account with medical decision making and resource utilization, independent historian/historians were used to obtain complete medical history. I independently interpreted the test that were performed, results were reviewed by me and considered findings on radiology if ordered. Medical management and examination interpretation discussions were had by me with other qualified healthcare professionals as indicated for the patient's care. 74-year-old female with right flank pain, patient has acute kidney injury creatinine went from 1.9-3.6, patient has 6 mm mid ureter stone with no to mild hydronephrosis on CT scan, pain controlled admitting for further care and evaluation, no Urology on-call so we will transfer patient to [facility]. DX & DISP Disposition: Inpatient Departure Impression: Primary Impression: Acute on chronic renal failure Additional Impression: Renal calculus, right Condition: Stable Referrals: KACIE WILKINS DO (PCP) PRITI MANN MD Aug 21, 2025 16:23
[2025-08-21 17:15] VITALS: BP 150/73; PULSE 78; RESP 17; TEMP 97.4; O2SAT 98
--- NOTE | 2025-08-21 17:25 | NUR ---
REPORT GIVEN TO OCTAVIO ESCOBAR, [id number]
--- NOTE | 2025-08-21 17:27 | NUR ---
[facility] TO PT
--- NOTE | 2025-08-21 17:28 | NUR ---
[facility] LEAVING WITH PT TO [facility]
--- NOTE | 2025-08-22 11:14 | EKG ---
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
== END 2025-08-21 17:29 | disposition short-term general hospital (02) ==
LOC: EDH 11:42
DX: N17.9 Acute kidney failure, unspecified (principal); I12.9 Hypertensive chronic kidney disease with stage 1 through stage 4 chronic kidney disease, or unspecified chronic kidney disease; E11.22 Type 2 diabetes mellitus with diabetic chronic kidney disease; N18.9 Chronic kidney disease, unspecified; N20.2 Calculus of kidney with calculus of ureter; Z88.0 Allergy status to penicillin; Z88.1 Allergy status to other antibiotic agents; Z88.5 Allergy status to narcotic agent; Z79.84 Long term (current) use of oral hypoglycemic drugs; Z79.899 Other long term (current) drug therapy; Z90.49 Acquired absence of other specified parts of digestive tract; Z90.710 Acquired absence of both cervix and uterus
CPT/HCPCS: 99285; 74176; 96374; 96375; 84484; 80048; 85025; 81001; 36415; 93005; J3360; J0360